=== PATIENT | female | born 1990 | race Two or more races ===

== ENCOUNTER 2023-05-08 13:09 | Observation (INO) ==
[2023-05-08 18:31] LABS: ABS Lymphocytes 1.7 10^3/uL (1.0-4.8); ABS Monocytes 0.7 10^3/uL (0.0-0.9); ABS Neutrophils 6.8 10^3/uL (1.5-7.6); ABS Nucleated RBC 0.01 10^3/ul; Eosinophil % 0.2 %; Hematocrit 38.5 % (35-45); Hemoglobin 12.9 g/dL (11.5-14.3); Lymphocyte % 18.5 %; Mean Corpuscular Hemoglobin 31.2 pg (27-33); Mean Corpuscular Hgb Conc 33.5 g/dL (31-36); Mean Corpuscular Volume 92.9 fL (80-97); Mean Platelet Volume 8.1 fL (7.5-11.2); Nucleated Red Blood Cells % 0.1 %/100WBC (0.0-0.8); Platelet Count 303 10^3/uL (150-450); Red Blood Count 4.14 10^6/uL (3.63-4.92); Red Cell Distribution Width 13.4 % (12-17); White Blood Count 9.3 10^3/uL (3.8-11.8)
[2023-05-08 18:40] LABS: Albumin 4.6 g/dL (3.2-5.2); Albumin/Globulin Ratio 1.3 (1-3); C Reactive Protein 23.81 mg/L (<8.01); Calcium 9.3 mg/dL (8.6-10.3); Creatinine, Serum 0.7 mg/dL (0.51-0.95); Globulin 3.5 g/dL (2-4); Potassium 3.9 mmol/L (3.5-5.0); Total Bilirubin 0.2 mg/dL (0.2-1.0); Total Protein 8.1 g/dL (6.4-8.9); eGFR CKD-EPI 117.8 (>60)
[2023-05-08 18:46] LABS: HCG Pregnancy 0.74 mIU/mL
[2023-05-08 23:09] LABS: Urine Appearance Cloudy; Urine Bilirubin Negative (Negative); Urine Blood Negative (Negative); Urine Color Yellow; Urine Glucose Negative (Negative); Urine Ketones Negative (Negative); Urine Nitrite Negative (Negative); Urine Protein Negative (Negative); Urine Specific Gravity 1.026 (1.002-1.030); Urine Urobilinogen Negative (Negative)
[2023-05-09 04:57] LABS: TSH Ultra Thyroid Stim Horm 1.67 mcIU/mL (0.34-5.60)
[2023-05-09] MEDS ORDERED: CMCS: Zonisamide 100 mg CAP (NF) PO SCH (10:00)
[2023-05-09 12:05] VITALS: BP 125/90
[2023-05-09] MEDS ORDERED: Zonisamide 100 mg CAP (NF) PO SCH (21:00)
== END 2023-05-09 12:06 | disposition home or self-care (01) ==
LOC: EDHOLD 13:09 → ED 13:09 → EDHOLD 05-09 12:05
PROVIDERS: ADMIT Internal Medicine; ATTEND Internal Medicine